=== PATIENT | male | born 1990 | race Caucasian/White ===

== ENCOUNTER 2022-12-17 10:32 | Outpatient (CLI) | payer MEDICAID, SELFPAY ==
--- NOTE | 2022-12-17 10:30 | CT_ITS ---
WS: [id number] CT SINUSES TECHNIQUE: Noncontrast CT of the paranasal sinuses with coronal and sagittal reformatted images. CLINICAL INFORMATION: Chronic nasal congestion COMPARISON: None. DLP: 444.[address] scans at [facility] use at least one of these dose optimization techniques: automated e xposure control; mA and/or kV adjustment per patient size (includes targeted exams where dose is matc hed to clinical indication); or iterative reconstruction. FINDINGS: Mild nasal septal deviation RIGHT to LEFT with a leftward directed spur. Nasal septal deviation measu res 2 to 3 mm. Mastoid air cells are well aerated. Normal posterior nasopharynx. Normal parapharyngea l fat. Paranasal sinuses are well aerated. Mild narrowing of the ostiomeatal units RIGHT greater than LEFT which are patent. Small LEFT becca bullosa. Frontal sinuses are well aerated. Frontal ethmoidal recesses are patent. T race mucosal thickening in the ethmoid air cells. Sphenoid sinuses are patent. Sphenoid ostia are pat ent. Visualized upper cervical spine appears normal. CT/CT sinus wo con* [id number] IMPRESSION: 1. Mild RIGHT to LEFT nasal septal deviation measuring 2-3 mm with a small lef tward directed spur. 2. Paranasal sinuses are well aerated. Trace mucosal thickening in the ethmoid air cells. 3. Small LEFT becca bullosa. 4. Ostiomeatal units are patent with mild narrowing RIGHT greater than LEFT. 5. Mastoid air cells are well aerated. Normal posterior nasopharynx.
== END 2022-12-17 10:33 | disposition home or self-care (01) ==
LOC: RAD 10:37
PROVIDERS: PCP Nurse Practitioner Family; Visit Provider Otolaryngology
DX: R09.81 Nasal congestion (principal)
CPT/HCPCS: 70486

== ENCOUNTER 2024-09-10 16:27 | Outpatient (CLI) | payer MEDICAID, SELFPAY ==
--- NOTE | 2024-09-10 16:38 | XRR_ITS ---
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 Study was focused on leg length. COMPARISON: No relevant prior studies available. FINDINGS: Bones/joints: Unremarkable. Total right leg length: 90 cm. Right femur length: 50 cm. Right tibia length: 40 cm. Total left leg length: 93 cm. Left femur length: 51 cm. Left tibia length: 41 cm. Leg length discrepancy: 3 cm discrepancy with the right leg longer when compared to the right. Notes: Femur length is measured from the superior aspect of the femoral head to the distal part of the medial femoral condyle. Tibia length is measured from the distal part of the medial femoral condyle to the center of the tibial plafond. XR/XR bone length study [id number] IMPRESSION: 3 cm discrepancy with the right leg longer when compared to the right.
== END 2024-09-10 16:28 | disposition home or self-care (01) ==
LOC: RAD 16:31
PROVIDERS: PCP Nurse Practitioner Family; Visit Provider Podiatrist Foot & Ankle Surgery
DX: Q89.8 Other specified congenital malformations (principal)
CPT/HCPCS: 77073